=== PATIENT | female | born 1980 | race Caucasian/White ===

== ENCOUNTER 2016-04-29 17:05 | Emergency (ER) | payer BC ==
[2016-04-29] MEDS ORDERED: KETOROLAC 30 MG/ML VIAL (J1885) As Ordered ONE (19:11)
[2016-04-29] MEDS ORDERED: ONDANSETRON 4MG/2ML VIAL (J2405) As Ordered ONE (19:11)
[2016-04-29 19:27] LABS: BASO % 0.2 % (0.0-1.0); EOS # 0.1 K/mm3 (0.0-0.50); EOS % 0.4 % (0.0-3.0); LARGE UNSTAINED CELL # 0.2 K/mm3 (0.0-0.4); LARGE UNSTAINED CELL % 1.5 % (0.0-4.0); LYMPH # 2.5 K/mm3 (1.5-4.5); LYMPH % 15.6 % (24.0-44.0); MEAN CORPUSCULAR HEMOGLOBIN 28.2 pg (27.0-33.0); MEAN CORPUSCULAR HGB CONC 33.7 g/dl (32.0-36.5); MEAN CORPUSCULAR VOLUME 83.8 fl (80.0-96.0); MONO # 0.7 K/mm3 (0.0-0.8); MONO % 4.3 % (0.0-5.0); NEUTROPHILS # 12.7 K/mm3 (1.8-7.7); NEUTROPHILS % 77.9 % (36.0-66.0); PLATELET COUNT, AUTOMATED 621 k/mm3 (150-450); RED CELL DISTRIBUTION WIDTH 12.7 % (11.5-14.5); WHITE BLOOD COUNT 16.3 K/mm3 (4.0-10.0)
[2016-04-29 19:47] LABS: CONTROL LINE HCG INT CTR LINE PRESENT
[2016-04-29 19:52] LABS: ALBUMIN 4.4 GM/DL (3.2-5.2); ALBUMIN/GLOBULIN RATIO 1.22 (1.00-1.93); BILIRUBIN,DIRECT 0.1 MG/DL (0.0-0.2); BILIRUBIN,TOTAL 0.4 MG/DL (0.2-1.0); CALCIUM LEVEL 10.5 MG/DL (8.5-10.1); CREATININE FOR GFR 1.13 MG/DL (0.55-1.02); POTASSIUM SERUM 4.1 MEQ/L (3.5-5.1)
[2016-04-29] MEDS ORDERED: METOCLOPRAMIDE 10 MG TAB As Ordered ONE (20:51)
--- NOTE | 2016-04-29 20:57 | EDDOCDS ---
Physician Documentation [facility] Name: Fior Howard Age: 35 yrs Sex: Female : 1980 Arrival Date: 04/29/2016 Time: 17:05 Bed I6 Private MD: NO PRIMARY PHYSICIAN, . Disposition: 04/29/16 20:36 Discharged to Home/Self Care. Impression: Vomiting, Diarrhea, unspecified, Dehydration. - Condition is Stable. - Discharge Instructions: Food Choices to Help Relieve Diarrhea, Adult, Diarrhea, Nausea and Vomiting. - Prescriptions for Reglan 10 mg Oral Tablet - take 1 tablet by ORAL route every 6 hours take 30 minutes before meals and at bedtime; 20 tablet. - Work Release Form - 1 day, Medication Reconciliation, Local Pharmacy Hours form. - Follow up: Private Physician; When: Call to arrange an appointment; Reason: Recheck today's complaints, Continuance of care. Follow [facility]: [facility]; When: Call to arrange an appointment; Reason: Recheck today's complaints, Continuance of care. - Problem is new. - Symptoms have improved. Historical: - Allergies: no known allergies; - Home Meds: 1. Zofran (as hydrochloride) 4 mg Oral tab 2 tabs as needed (Last dose: 04/28/2016 21:00) 2. Zyrtec 10 mg Oral tab (Last dose: 04/29/2016 08:00) 3. Ventolin Rotahaler/Rotacaps Inhl as needed (Last dose: Unknown) 4. Advair Diskus 250-50 mcg/dose Inhl dsdv 1 puff 2 times per day (Last dose: 04/29/2016 08:00) - PMHx: Asthma; - PSHx: left arm ortho surgery; - Social history: Smoking status: Patient states was never smoker of tobacco. Patient uses alcohol occasionally. Patient/guardian denies using street drugs, No barriers to communication noted, The patient speaks fluent Moldovan, Speaks appropriately for age. - Family history: Not pertinent. - : The pt / caregiver states he / she is not on anticoagulants. Home medication list is obtained from the patient. - Exposure Risk Screening:: None identified. 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 5 in. (165.10 cm) (R); Pain 5/10; 20:55 BP 133 / 90; Pulse 87; Resp 18; Pulse Ox 95% on R/A; kc3 17:07 Body Mass Index 40.27 (109.77 kg, 165.10 cm) gr2 MDM: 19:10 NS 0.9% 1000 ml IV at bolus once ordered. mo1 19:10 Ondansetron 4 mg IVP once ordered. mo1 19:10 ketorolac 30 mg IVP once ordered. mo1 19:10 IV Saline Lock ordered. mo1 19:10 Undress patient appropriately for examination ordered. mo1 19:11 Basic Metabolic Profile Ordered. EDMS 19:11 CBC with Diff Ordered. EDMS 19:11 Lipase Ordered. EDMS 19:11 Liver Profile Ordered. EDMS 19:11 Urinalysis Ordered. EDMS 19:11 Urine Culture Ordered. EDMS 19:11 NOTHING BY MOUTH+DIET ordered. EDMS 19:21 HCG,Serum Qualitative Ordered. EDMS 19:40 Financial registration complete. b 19:47 [facility] [place] was scanned into [employer] and attached to record. gjb 20:25 Basic Metabolic Profile Reviewed. mo1 20:26 CBC with Diff Reviewed. mo1 20:26 Liver Profile Reviewed. mo1 20:26 Urinalysis Reviewed. mo1 20:27 Lipase Reviewed. mo1 20:27 HCG,Serum Qualitative Reviewed. mo1 20:50 Metoclopramide 5 mg PO once ordered. mo1 20:52 Metoclopramide 10 mg PO once ordered. mo1 Administered Medications: 19:18 Drug: NS 0.9% 1000 ml [sodium chloride 0.9 % injection solution] Route: IV; Rate: dsf bolus; Site: right antecubital; 19:18 Drug: Ondansetron 4 mg [ondansetron HCl 2 mg/mL intravenous solution (2 mL)] Route: dsf IVP; Site: right antecubital; 19:18 Drug: ketorolac 30 mg [ketorolac 30 mg/mL (1 mL) injection solution (1 mL)] Route: IVP; dsf Site: right antecubital; 20:52 Not Given (Duplicate Order): Metoclopramide 5 mg PO once mo1 20:54 Drug: Metoclopramide 10 mg [metoclopramide 10 mg tablet (1 tabs)] Route: PO; kc3 Signatures: Dispatcher [employer] Ariana Martinez RN RN ttb Benigno Moreno PA PA mo1 Sondra Rodriguez RN RN kc3 Raegan Mcgowan Desiree RN dsf The chart was reviewed and I authenticate all verbal orders and agree with the evaluation and treatment provided.Attachments: 19:47 [facility] Payment Agreement [email or web address] MTDD
--- NOTE | 2016-04-29 20:57 | EDDOCDS ---
Nurse's Notes [facility] Name: Fior Howard Age: 35 yrs Sex: Female : 1980 Arrival Date: 04/29/2016 Time: 17:05 Bed I6 / 28 Private MD: NO PRIMARY PHYSICIAN, . Diagnosis: Vomiting;Diarrhea, unspecified;Dehydration Presentation: 04/29 17:10 Presenting complaint: Patient states: n/v/d since Wednesday. No relief with zofran. ttb Adult Sepsis Screening: The patient does not have new or worsening altered mentation. Patient's respiratory rate is less than 22. Systolic blood pressure is greater than 100. Patient has a qSOFA score of 0- Negative Sepsis Screen. Suicide/Homicide risk assessment- the patient denies having any suicidal and/or homicidal ideations and does not present with any other emotional, behavioral or mental health complaints. Status: Patient is not a human resources services specialist or dependent. Transition of care: patient was not received from another setting of care. 17:10 Acuity: JOE Level 3 ttb 17:10 Method Of Arrival: Walkin/Carried/Asstd ttb Triage Assessment: 17:12 General: Appears in no apparent distress, well nourished, well groomed, Behavior is ttb appropriate for age, cooperative, pleasant. Pain: Location: abd cramping 4/10. HIV screening NA for this visit Offered previously. Neurological: Level of Consciousness is awake, alert. Cardiovascular: Chest pain is denied. Respiratory: No deficits noted. Airway is patent Denies cough, shortness of breath. GI: Reports diarrhea, nausea, vomiting. Derm: Skin is normal. MIND READER: 17:12 LMP 04/05/2016 ttb Historical: - Allergies: no known allergies; - Home Meds: 1. Zofran (as hydrochloride) 4 mg Oral tab 2 tabs as needed (Last dose: 04/28/2016 21:00) 2. Zyrtec 10 mg Oral tab (Last dose: 04/29/2016 08:00) 3. Ventolin Rotahaler/Rotacaps Inhl as needed (Last dose: Unknown) 4. Advair Diskus 250-50 mcg/dose Inhl dsdv 1 puff 2 times per day (Last dose: 04/29/2016 08:00) - PMHx: Asthma; - PSHx: left arm ortho surgery; - Social history: Smoking status: Patient states was never smoker of tobacco. Patient uses alcohol occasionally. Patient/guardian denies using street drugs, No barriers to communication noted, The patient speaks fluent Greek, Speaks appropriately for age. - Family history: Not pertinent. - : The pt / caregiver states he / she is not on anticoagulants. Home medication list is obtained from the patient. - Exposure Risk Screening:: None identified. Screenin:55 Screening information is obtained from the patient. Fall risk: No risks identified. kc3 Assistance ADL's: requires no assistance with activities of daily living. Abuse/DV Screen: The patient / caregiver reports he/she is: not in a situation that causes fear, pain or injury. Nutritional screening: No deficits noted. Nutritional screening: No deficits noted. Advance Directives: Currently, there is no health care proxy. home support is adequate. Assessment: 19:18 Adult Sepsis Screening: The patient does not have new or worsening altered mentation. dsf Patient's respiratory rate is less than 22. Systolic blood pressure is greater than 100. Patient has a qSOFA score of 0- Negative Sepsis Screen. General: Appears in no apparent distress, comfortable, Behavior is appropriate for age, cooperative. Pain: Location: abdomen Pain currently is 5 out of 10 on a pain scale. Quality of pain is described as crampy. Neurological: Level of Consciousness is awake, alert, Oriented to person, place, time. Cardiovascular: Capillary refill < 3 seconds. Respiratory: Airway is patent Respiratory effort is even, unlabored, Respiratory pattern is regular, symmetrical. GI: Abdomen is obese, Reports cramping, diarrhea, nausea, vomiting. Derm: Skin is pink, warm & dry. 20:10 General: Appears in no apparent distress, comfortable, Behavior is appropriate for age, jmb cooperative. Neurological: Level of Consciousness is awake, alert, obeys commands, Oriented to person, place, time, Speech is normal, Facial symmetry appears normal, Facial symmetry: tongue is midline. Respiratory: Airway is patent Respiratory effort is even, unlabored, Respiratory pattern is regular, symmetrical. 20:55 General: Appears in no apparent distress, comfortable, Behavior is appropriate for age, kc3 cooperative. Pain: Location: abdomen. Neurological: Level of Consciousness is awake, alert, obeys commands. Respiratory: Respiratory effort is even, unlabored. GI: Abdomen is obese, Bowel sounds present X 4 quads. Abd is soft Abd is tender to palpation. Derm: Skin is pink, warm & dry. Vital Signs: 17:07 BP 145 / 85; Pulse 96; Resp 18 S; Temp 98.2(O); Pulse Ox 98% on R/A; Weight 109.77 kg gr2 (R); Height 5 ft. 5 in. (165.10 cm) (R); Pain 5/10; 20:55 BP 133 / 90; Pulse 87; Resp 18; Pulse Ox 95% on R/A; kc3 17:07 Body Mass Index 40.27 (109.77 kg, 165.10 cm) gr2 Vitals: 17:07 Log In Time: April 29, 2016 at 17:07. gr2 ED Course: 17:06 Patient visited by Dewey Gill. gr2 17:06 NO PRIMARY PHYSICIAN, . is Private Physician. gr2 17:06 Patient moved to Waiting gr2 17:08 Patient visited by Dewey Gill. gr2 17:08 Patient moved to Pre RCE gr2 17:11 Triage Initiated ttb 17:13 Patient visited by Ariana Richter RN. ttb 18:20 Patient moved to Triage 1 mlb1 18:58 Benigno Moreno PA is PHCP. mo1 18:58 Jazmine Gerber MD is Attending Physician. mo1 19:08 Carmelina Davis, RN is Primary Nurse. ttb 19:08 Darlene Juarez,FERN is Primary Nurse. ttb 19:08 Patient moved to I ttb 19:09 Patient visited by Benigno Moreno PA. mo1 19:17 Basic Metabolic Profile Sent. dsf 19:18 CBC with Diff Sent. dsf 19:18 Lipase Sent. dsf 19:18 Liver Profile Sent. dsf 19:18 Inserted saline lock: 20 gauge in right antecubital area The patient tolerated the dsf procedure well. 19:19 Patient visited by Laura Henley,FERN. dsf 19:47 [facility] [place] Payment Agreement was scanned into [employer] and attached to record. gjb 20:10 Patient visited by Brennan Mcdonald,FERN. jmb 20:36 [facility] is Referral Physician. mo1 20:56 The patient / caregiver is instructed regarding the plan of care and ED course. kc3 20:56 Discontinued IV lock intact, bleeding controlled, pressure dressing applied, No kc3 redness/swelling at site. No procedures done that require assistance. Administered Medications: 19:18 Drug: NS 0.9% 1000 ml [sodium chloride 0.9 % injection solution] Route: IV; Rate: dsf bolus; Site: right antecubital; 19:18 Drug: Ondansetron 4 mg [ondansetron HCl 2 mg/mL intravenous solution (2 mL)] Route: dsf IVP; Site: right antecubital; 19:18 Drug: ketorolac 30 mg [ketorolac 30 mg/mL (1 mL) injection solution (1 mL)] Route: IVP; dsf Site: right antecubital; 20:52 Not Given (Duplicate Order): Metoclopramide 5 mg PO once mo1 20:54 Drug: Metoclopramide 10 mg [metoclopramide 10 mg tablet (1 tabs)] Route: PO; kc3 Order Results: Lab Order: Basic Metabolic Profile; [facility] 04/29/16 19:16 Test: GLUCOSE, FASTING; Value: 110; Range: 70-105; Abnormal: Above high normal; Units: MG/DL; Status: F Test: BLOOD UREA NITROGEN; Value: 19; Range: 7-18; Abnormal: Above high normal; Units: MG/DL; Status: F Test: CREATININE FOR GFR; Value: 1.13; Range: 0.55-1.02; Abnormal: Above high normal; Units: MG/DL; Status: F Test: GLOMERULAR FILTRATION RATE; Value: 59.0; Range: >60; Abnormal: Below low normal; Status: F Test: SODIUM LEVEL; Value: 140; Range: 136-145; Units: MEQ/L; Status: F Test: POTASSIUM SERUM; Value: 4.1; Range: 3.5-5.1; Units: MEQ/L; Status: F Test: CHLORIDE LEVEL; Value: 100; Range: 98-107; Units: MEQ/L; Status: F Test: CARBON DIOXIDE LEVEL; Value: 28; Range: 21-32; Units: MEQ/L; Status: F Test: ANION GAP; Value: 12; Range: 8-16; Units: MEQ/L; Status: F Test: CALCIUM LEVEL; Value: 10.5; Range: 8.5-10.1; Abnormal: Above high normal; Units: MG/DL; Status: F Test Note: ; Units are mL/min/1.73 m2 Chronic Kidney Disease Staging per NKF: Stage I & II GFR >=60 Normal to Mildly Decreased Stage III GFR 30-59 Moderately Decreased Stage IV GFR 15-29 Severely Decreased Stage V GFR <15 Very Little GFR Left ESRD GFR <15 on CONSTRUCTION FRAMER Lab Order: CBC with Diff; SPEC'M 04/29/16 19:16 Test: WHITE BLOOD COUNT; Value: 16.3; Range: 4.0-10.0; Abnormal: Above high normal; Units: K/mm3; Status: F Test: RED BLOOD COUNT; Value: 5.58; Range: 4.00-5.40; Abnormal: Above high normal; Units: M/mm3; Status: F Test: HEMOGLOBIN; Value: 15.8; Range: 12.0-16.0; Units: g/dl; Status: F Test: HEMATOCRIT; Value: 46.8; Range: 36.0-47.0; Units: %; Status: F Test: MEAN CORPUSCULAR VOLUME; Value: 83.8; Range: 80.0-96.0; Units: fl; Status: F Test: MEAN CORPUSCULAR HEMOGLOBIN; Value: 28.2; Range: 27.0-33.0; Units: pg; Status: F Test: MEAN CORPUSCULAR HGB CONC; Value: 33.7; Range: 32.0-36.5; Units: g/dl; Status: F Test: RED CELL DISTRIBUTION WIDTH; Value: 12.7; Range: 11.5-14.5; Units: %; Status: F Test: PLATELET COUNT, AUTOMATED; Value: 621; Range: 150-450; Abnormal: Above high normal; Units: k/mm3; Status: F Test: NEUTROPHILS %; Value: 77.9; Range: 36.0-66.0; Abnormal: Above high normal; Units: %; Status: F Test: LYMPH %; Value: 15.6; Range: 24.0-44.0; Abnormal: Below low normal; Units: %; Status: F Test: MONO %; Value: 4.3; Range: 0.0-5.0; Units: %; Status: F Test: EOS %; Value: 0.4; Range: 0.0-3.0; Units: %; Status: F Test: BASO %; Value: 0.2; Range: 0.0-1.0; Units: %; Status: F Test: LARGE UNSTAINED CELL %; Value: 1.5; Range: 0.0-4.0; Units: %; Status: F Test: NEUTROPHILS #; Value: 12.7; Range: 1.8-7.7; Abnormal: Above high normal; Units: K/mm3; Status: F Test: LYMPH #; Value: 2.5; Range: 1.5-4.5; Units: K/mm3; Status: F Test: MONO #; Value: 0.7; Range: 0.0-0.8; Units: K/mm3; Status: F Test: EOS #; Value: 0.1; Range: 0.0-0.50; Units: K/mm3; Status: F Test: BASO #; Value: 0.0; Range: 0.0-0.2; Units: K/mm3; Status: F Test: LARGE UNSTAINED CELL #; Value: 0.2; Range: 0.0-0.4; Units: K/mm3; Status: F Lab Order: Lipase; [facility] 04/29/16 19:16 Test: LIPASE; Value: 91; Range: 73-393; Units: U/L; Status: F Lab Order: Liver Profile; [facility] 04/29/16 19:16 Test: AST/SGOT; Value: 13; Range: 15-37; Abnormal: Below low normal; Units: U/L; Status: F Test: ALT/SGPT; Value: 27; Range: 12-78; Units: U/L; Status: F Test: ALKALINE PHOSPHATASE; Value: 77; Range: 45-117; Units: U/L; Status: F Test: BILIRUBIN,TOTAL; Value: 0.4; Range: 0.2-1.0; Units: MG/DL; Status: F Test: BILIRUBIN,DIRECT; Value: 0.1; Range: 0.0-0.2; Units: MG/DL; Status: F Test: TOTAL PROTEIN; Value: 8.0; Range: 6.4-8.2; Units: GM/DL; Status: F Test: ALBUMIN; Value: 4.4; Range: 3.2-5.2; Units: GM/DL; Status: F Test: ALBUMIN/GLOBULIN RATIO; Value: 1.22; Range: 1.00-1.93; Status: F Lab Order: Urinalysis; SPEC'M 04/29/16 20:01 Test: APPEARANCE, URINE; Value: CLOUDY; Range: CLEAR; Abnormal: Above high normal; Status: F Test: COLOR, URINE; Value: YONY; Range: YELLOW; Status: F Test: PH,URINE; Value: 5.0; Range: 5.0-9.0; Units: UNITS; Status: F Test: SPECIFIC GRAVITY URINE AUTO; Value: 1.035; Range: 1.002-1.035; Status: F Test: PROTEIN, URINE AUTO; Value: 2+; Range: NEGATIVE; Abnormal: Above high normal; Units: mg/dL; Status: F Test: GLUCOSE, URINE (UA) AUTO; Value: NEGATIVE; Range: NEGATIVE; Units: mg/dL; Status: F Test: KETONE, URINE AUTO; Value: 1+; Range: NEGATIVE; Abnormal: Above high normal; Units: mg/dL; Status: F Test: UROBILINOGEN, URINE AUTO; Value: 0.2; Range: 0.0-2.0; Units: mg/dL; Status: F Test: BILIRUBIN, URINE AUTO; Value: 1+; Range: NEGATIVE; Abnormal: Above high normal; Status: F Test: NITRITE, URINE AUTO; Value: NEGATIVE; Range: NEGATIVE; Status: F Test: LEUKOCYTE ESTERASE, URINE AUTO; Value: NEGATIVE; Range: NEGATIVE; Status: F Test: BLOOD, URINE BLOOD; Value: 1+; Range: NEGATIVE; Abnormal: Above high normal; Status: F Test: WBC, URINE AUTO; Value: 2; Range: 0-3; Units: /HPF; Status: F Test: RBC, URINE AUTO; Value: 6; Range: 0-3; Abnormal: Above high normal; Units: /HPF; Status: F Test: BACTERIA, URINE AUTO; Value: NEGATIVE; Range: NEGATIVE; Status: F Test: SQUAMOUS EPITHELIAL CELL UR AU; Value: 30; Range: 0-6; Units: /HPF; Status: F Test: MUCUS, URINE; Value: SMALL; Range: NEGATIVE; Status: F Test: HYALINE CAST, URINE AUTO; Value: 3; Range: 0-1; Units: /LPF; Status: F Test: AMORPHOUS SEDIMENT; Value: SMALL; Range: NEGATIVE; Abnormal: Above high normal; Status: F Lab Order: HCG,Serum Qualitative; SPEC'M 04/29/16 19:15 Test: HCG, SERUM QUALITATIVE; Value: NEGATIVE; Range: NEGATIVE; Status: F Outcome: 20:36 Discharge ordered by Provider. mo1 20:56 Discharge Assessment: Patient awake, alert and oriented x 3. No cognitive and/or kc3 functional deficits noted. Patient verbalized understanding of disposition instructions. patient administered narcotics - no. The following High Risk Discharge criteria are identified: None. Discharged to home ambulatory. Condition: stable. Discharge instructions given to patient, Instructed on discharge instructions, follow up and referral plans. medication usage, Demonstrated understanding of instructions, medications, Pt was receptive of discharge instructions/ teaching. Prescriptions given X 1, Work note provided to patient. No special radiology studies were completed. Property :Personal belongings accompany Pt. 20:57 Patient left the ED. kc3 Signatures: Benigno Lopez RN RN mlb1 Laura HenleyRN RN Ariana Meredith RN RN Dewey Rojas Benigno Contreras PA PA mo1 Brennan McdonaldRN RN Sondra Norton RN RN kc3 Raegan Mcgowan MTDD
--- NOTE | 2016-05-01 21:57 | EDDOCDS ---
Nurse's Notes [facility] Name: Fior Howard Age: 35 yrs Sex: Female : 1980 Arrival Date: 04/29/2016 Time: 17:05 Bed I6 / 28 Private MD: NO PRIMARY PHYSICIAN, . Diagnosis: Vomiting;Diarrhea, unspecified;Dehydration Presentation: 04/29 17:10 Presenting complaint: Patient states: n/v/d since Wednesday. No relief with zofran. ttb Adult Sepsis Screening: The patient does not have new or worsening altered mentation. Patient's respiratory rate is less than 22. Systolic blood pressure is greater than 100. Patient has a qSOFA score of 0- Negative Sepsis Screen. Suicide/Homicide risk assessment- the patient denies having any suicidal and/or homicidal ideations and does not present with any other emotional, behavioral or mental health complaints. Status: Patient is not a service plumber or dependent. Transition of care: patient was not received from another setting of care. 17:10 Acuity: JOE Level 3 ttb 17:10 Method Of Arrival: Walkin/Carried/Asstd ttb Triage Assessment: 17:12 General: Appears in no apparent distress, well nourished, well groomed, Behavior is ttb appropriate for age, cooperative, pleasant. Pain: Location: abd cramping 4/10. HIV screening NA for this visit Offered previously. Neurological: Level of Consciousness is awake, alert. Cardiovascular: Chest pain is denied. Respiratory: No deficits noted. Airway is patent Denies cough, shortness of breath. GI: Reports diarrhea, nausea, vomiting. Derm: Skin is normal. 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 Zofran (as hydrochloride) 4 mg Oral tab 2 tabs as needed (Last dose: 04/28/2016 21:00) 2. Zyrtec 10 mg Oral tab (Last dose: 04/29/2016 08:00) 3. Ventolin Rotahaler/Rotacaps Inhl as needed (Last dose: Unknown) 4. Advair Diskus 250-50 mcg/dose Inhl dsdv 1 puff 2 times per day (Last dose: 04/29/2016 08:00) - PMHx: Asthma; - PSHx: left arm ortho surgery; - Social history: Smoking status: Patient states was never smoker of tobacco. Patient uses alcohol occasionally. Patient/guardian denies using street drugs, No barriers to communication noted, The patient speaks fluent Hong Konger, Speaks appropriately for age. - Family history: Not pertinent. - : The pt / caregiver states he / she is not on anticoagulants. Home medication list is obtained from the patient. - Exposure Risk Screening:: None identified. Screenin:55 Screening information is obtained from the patient. Fall risk: No risks identified. kc3 Assistance ADL's: requires no assistance with activities of daily living. Abuse/DV Screen: The patient / caregiver reports he/she is: not in a situation that causes fear, pain or injury. Nutritional screening: No deficits noted. Nutritional screening: No deficits noted. Advance Directives: Currently, there is no health care proxy. home support is adequate. Assessment: 19:18 Adult Sepsis Screening: The patient does not have new or worsening altered mentation. dsf Patient's respiratory rate is less than 22. Systolic blood pressure is greater than 100. Patient has a qSOFA score of 0- Negative Sepsis Screen. General: Appears in no apparent distress, comfortable, Behavior is appropriate for age, cooperative. Pain: Location: abdomen Pain currently is 5 out of 10 on a pain scale. Quality of pain is described as crampy. Neurological: Level of Consciousness is awake, alert, Oriented to person, place, time. Cardiovascular: Capillary refill < 3 seconds. Respiratory: Airway is patent Respiratory effort is even, unlabored, Respiratory pattern is regular, symmetrical. GI: Abdomen is obese, Reports cramping, diarrhea, nausea, vomiting. Derm: Skin is pink, warm & dry. 20:10 General: Appears in no apparent distress, comfortable, Behavior is appropriate for age, jmb cooperative. Neurological: Level of Consciousness is awake, alert, obeys commands, Oriented to person, place, time, Speech is normal, Facial symmetry appears normal, Facial symmetry: tongue is midline. Respiratory: Airway is patent Respiratory effort is even, unlabored, Respiratory pattern is regular, symmetrical. 20:55 General: Appears in no apparent distress, comfortable, Behavior is appropriate for age, kc3 cooperative. Pain: Location: abdomen. Neurological: Level of Consciousness is awake, alert, obeys commands. Respiratory: Respiratory effort is even, unlabored. GI: Abdomen is obese, Bowel sounds present X 4 quads. Abd is soft Abd is tender to palpation. Derm: Skin is pink, warm & dry. Vital Signs: 17:07 BP 145 / 85; Pulse 96; Resp 18 S; Temp 98.2(O); Pulse Ox 98% on R/A; Weight 109.77 kg gr2 (R); Height 5 ft. 5 in. (165.10 cm) (R); Pain 5/10; 20:55 BP 133 / 90; Pulse 87; Resp 18; Pulse Ox 95% on R/A; kc3 17:07 Body Mass Index 40.27 (109.77 kg, 165.10 cm) gr2 Vitals: 17:07 Log In Time: April 29, 2016 at 17:07. gr2 ED Course: 17:06 Patient visited by Dewey Gill. gr2 17:06 NO PRIMARY PHYSICIAN, . is Private Physician. gr2 17:06 Patient moved to Waiting gr2 17:08 Patient visited by Dewey Gill. gr2 17:08 Patient moved to Pre RCE gr2 17:11 Triage Initiated ttb 17:13 Patient visited by Ariana Richter RN. ttb 18:20 Patient moved to Triage 1 mlb1 18:58 Benigno Moreno PA is PHCP. mo1 18:58 Jazmine Gerber MD is Attending Physician. mo1 19:08 Carmelina Davis, RN is Primary Nurse. ttb 19:08 Darlene Juarez,FERN is Primary Nurse. ttb 19:08 Patient moved to I ttb 19:09 Patient visited by Benigno Moreno PA. mo1 19:17 Basic Metabolic Profile Sent. dsf 19:18 CBC with Diff Sent. dsf 19:18 Lipase Sent. dsf 19:18 Liver Profile Sent. dsf 19:18 Inserted saline lock: 20 gauge in right antecubital area The patient tolerated the dsf procedure well. 19:19 Patient visited by Laura Henley,FERN. dsf 19:47 [facility] Payment Agreement was scanned into [employer] and attached to record. gjb 20:10 Patient visited by Brennan Mcdonald,FERN. jmb 20:36 [facility] is Referral Physician. mo1 20:56 The patient / caregiver is instructed regarding the plan of care and ED course. kc3 20:56 Discontinued IV lock intact, bleeding controlled, pressure dressing applied, No kc3 redness/swelling at site. No procedures done that require assistance. 04/30 13:23 T-Sheet-- Draft Copy was scanned into [employer] and attached to record. gb Administered Medications: 04/29 19:18 Drug: NS 0.9% 1000 ml [sodium chloride 0.9 % injection solution] Route: IV; Rate: dsf bolus; Site: right antecubital; 19:18 Drug: Ondansetron 4 mg [ondansetron HCl 2 mg/mL intravenous solution (2 mL)] Route: dsf IVP; Site: right antecubital; 19:18 Drug: ketorolac 30 mg [ketorolac 30 mg/mL (1 mL) injection solution (1 mL)] Route: IVP; dsf Site: right antecubital; 20:52 Not Given (Duplicate Order): Metoclopramide 5 mg PO once mo1 20:54 Drug: Metoclopramide 10 mg [metoclopramide 10 mg tablet (1 tabs)] Route: PO; kc3 Order Results: Lab Order: Basic Metabolic Profile; SPEC'M 04/29/16 19:16 Test: GLUCOSE, FASTING; Value: 110; Range: 70-105; Abnormal: Above high normal; Units: MG/DL; Status: F Test: BLOOD UREA NITROGEN; Value: 19; Range: 7-18; Abnormal: Above high normal; Units: MG/DL; Status: F Test: CREATININE FOR GFR; Value: 1.13; Range: 0.55-1.02; Abnormal: Above high normal; Units: MG/DL; Status: F Test: GLOMERULAR FILTRATION RATE; Value: 59.0; Range: >60; Abnormal: Below low normal; Status: F Test: SODIUM LEVEL; Value: 140; Range: 136-145; Units: MEQ/L; Status: F Test: POTASSIUM SERUM; Value: 4.1; Range: 3.5-5.1; Units: MEQ/L; Status: F Test: CHLORIDE LEVEL; Value: 100; Range: 98-107; Units: MEQ/L; Status: F Test: CARBON DIOXIDE LEVEL; Value: 28; Range: 21-32; Units: MEQ/L; Status: F Test: ANION GAP; Value: 12; Range: 8-16; Units: MEQ/L; Status: F Test: CALCIUM LEVEL; Value: 10.5; Range: 8.5-10.1; Abnormal: Above high normal; Units: MG/DL; Status: F Test Note: ; Units are mL/min/1.73 m2 Chronic Kidney Disease Staging per NKF: Stage I & II GFR >=60 Normal to Mildly Decreased Stage III GFR 30-59 Moderately Decreased Stage IV GFR 15-29 Severely Decreased Stage V GFR <15 Very Little GFR Left ESRD GFR <15 on TELEPHONE TRIAGE NURSE Lab Order: CBC with Diff; SPEC'M 04/29/16 19:16 Test: WHITE BLOOD COUNT; Value: 16.3; Range: 4.0-10.0; Abnormal: Above high normal; Units: K/mm3; Status: F Test: RED BLOOD COUNT; Value: 5.58; Range: 4.00-5.40; Abnormal: Above high normal; Units: M/mm3; Status: F Test: HEMOGLOBIN; Value: 15.8; Range: 12.0-16.0; Units: g/dl; Status: F Test: HEMATOCRIT; Value: 46.8; Range: 36.0-47.0; Units: %; Status: F Test: MEAN CORPUSCULAR VOLUME; Value: 83.8; Range: 80.0-96.0; Units: fl; Status: F Test: MEAN CORPUSCULAR HEMOGLOBIN; Value: 28.2; Range: 27.0-33.0; Units: pg; Status: F Test: MEAN CORPUSCULAR HGB CONC; Value: 33.7; Range: 32.0-36.5; Units: g/dl; Status: F Test: RED CELL DISTRIBUTION WIDTH; Value: 12.7; Range: 11.5-14.5; Units: %; Status: F Test: PLATELET COUNT, AUTOMATED; Value: 621; Range: 150-450; Abnormal: Above high normal; Units: k/mm3; Status: F Test: NEUTROPHILS %; Value: 77.9; Range: 36.0-66.0; Abnormal: Above high normal; Units: %; Status: F Test: LYMPH %; Value: 15.6; Range: 24.0-44.0; Abnormal: Below low normal; Units: %; Status: F Test: MONO %; Value: 4.3; Range: 0.0-5.0; Units: %; Status: F Test: EOS %; Value: 0.4; Range: 0.0-3.0; Units: %; Status: F Test: BASO %; Value: 0.2; Range: 0.0-1.0; Units: %; Status: F Test: LARGE UNSTAINED CELL %; Value: 1.5; Range: 0.0-4.0; Units: %; Status: F Test: NEUTROPHILS #; Value: 12.7; Range: 1.8-7.7; Abnormal: Above high normal; Units: K/mm3; Status: F Test: LYMPH #; Value: 2.5; Range: 1.5-4.5; Units: K/mm3; Status: F Test: MONO #; Value: 0.7; Range: 0.0-0.8; Units: K/mm3; Status: F Test: EOS #; Value: 0.1; Range: 0.0-0.50; Units: K/mm3; Status: F Test: BASO #; Value: 0.0; Range: 0.0-0.2; Units: K/mm3; Status: F Test: LARGE UNSTAINED CELL #; Value: 0.2; Range: 0.0-0.4; Units: K/mm3; Status: F Lab Order: Lipase; [facility]' 04/29/16 19:16 Test: LIPASE; Value: 91; Range: 73-393; Units: U/L; Status: F Lab Order: Liver Profile; [facility]' 04/29/16 19:16 Test: AST/SGOT; Value: 13; Range: 15-37; Abnormal: Below low normal; Units: U/L; Status: F Test: ALT/SGPT; Value: 27; Range: 12-78; Units: U/L; Status: F Test: ALKALINE PHOSPHATASE; Value: 77; Range: 45-117; Units: U/L; Status: F Test: BILIRUBIN,TOTAL; Value: 0.4; Range: 0.2-1.0; Units: MG/DL; Status: F Test: BILIRUBIN,DIRECT; Value: 0.1; Range: 0.0-0.2; Units: MG/DL; Status: F Test: TOTAL PROTEIN; Value: 8.0; Range: 6.4-8.2; Units: GM/DL; Status: F Test: ALBUMIN; Value: 4.4; Range: 3.2-5.2; Units: GM/DL; Status: F Test: ALBUMIN/GLOBULIN RATIO; Value: 1.22; Range: 1.00-1.93; Status: F Lab Order: Urinalysis; SPEC'M 04/29/16 20:01 Test: APPEARANCE, URINE; Value: CLOUDY; Range: CLEAR; Abnormal: Above high normal; Status: F Test: COLOR, URINE; Value: YONY; Range: YELLOW; Status: F Test: PH,URINE; Value: 5.0; Range: 5.0-9.0; Units: UNITS; Status: F Test: SPECIFIC GRAVITY URINE AUTO; Value: 1.035; Range: 1.002-1.035; Status: F Test: PROTEIN, URINE AUTO; Value: 2+; Range: NEGATIVE; Abnormal: Above high normal; Units: mg/dL; Status: F Test: GLUCOSE, URINE (UA) AUTO; Value: NEGATIVE; Range: NEGATIVE; Units: mg/dL; Status: F Test: KETONE, URINE AUTO; Value: 1+; Range: NEGATIVE; Abnormal: Above high normal; Units: mg/dL; Status: F Test: UROBILINOGEN, URINE AUTO; Value: 0.2; Range: 0.0-2.0; Units: mg/dL; Status: F Test: BILIRUBIN, URINE AUTO; Value: 1+; Range: NEGATIVE; Abnormal: Above high normal; Status: F Test: NITRITE, URINE AUTO; Value: NEGATIVE; Range: NEGATIVE; Status: F Test: LEUKOCYTE ESTERASE, URINE AUTO; Value: NEGATIVE; Range: NEGATIVE; Status: F Test: BLOOD, URINE BLOOD; Value: 1+; Range: NEGATIVE; Abnormal: Above high normal; Status: F Test: WBC, URINE AUTO; Value: 2; Range: 0-3; Units: /HPF; Status: F Test: RBC, URINE AUTO; Value: 6; Range: 0-3; Abnormal: Above high normal; Units: /HPF; Status: F Test: BACTERIA, URINE AUTO; Value: NEGATIVE; Range: NEGATIVE; Status: F Test: SQUAMOUS EPITHELIAL CELL UR AU; Value: 30; Range: 0-6; Units: /HPF; Status: F Test: MUCUS, URINE; Value: SMALL; Range: NEGATIVE; Status: F Test: HYALINE CAST, URINE AUTO; Value: 3; Range: 0-1; Units: /LPF; Status: F Test: AMORPHOUS SEDIMENT; Value: SMALL; Range: NEGATIVE; Abnormal: Above high normal; Status: F Lab Order: Urine Culture; SPEC'M 04/29/16 20:01 Test: URINE CULTURE; Value: <EXTERNAL COMMENT eCWMed> FULL REPORT IN LAB NOTES (eCW and Medent).; Status: F Test: URINE CULTURE; Value: URINE CULTURE RESULT SPECIMEN APPEARS CONTAMINATED; Status: F Lab Order: HCG,Serum Qualitative; SPEC'M 04/29/16 19:15 Test: HCG, SERUM QUALITATIVE; Value: NEGATIVE; Range: NEGATIVE; Status: F Outcome: 20:36 Discharge ordered by Provider. mo1 20:56 Discharge Assessment: Patient awake, alert and oriented x 3. No cognitive and/or kc3 functional deficits noted. Patient verbalized understanding of disposition instructions. patient administered narcotics - no. The following High Risk Discharge criteria are identified: None. Discharged to home ambulatory. Condition: stable. Discharge instructions given to patient, Instructed on discharge instructions, follow up and referral plans. medication usage, Demonstrated understanding of instructions, medications, Pt was receptive of discharge instructions/ teaching. Prescriptions given X 1, Work note provided to patient. No special radiology studies were completed. Property :Personal belongings accompany Pt. 20:57 Patient left the ED. kc3 Signatures: Katie Reno, Reg Reg Benigno Garcia RN RN mlb1 Laura Henley,RN RN joyf Ariana Richter RN RN bernabeb Dewey Gill gr2 Benigno Moreno PA PA mo1 Brennan Mcdonald RN RN jmb Crane, Kelsi, RN RN kc3 Raegan Mcgowan Chart Complete MTDD
--- NOTE | 2016-05-01 21:57 | EDDOCDS ---
Physician Documentation Name: Fior Howard Age: 35 yrs Sex: Female : 1980 Arrival Date: 04/29/2016 Time: 17:05 Bed I6 Private MD: NO PRIMARY PHYSICIAN, . Disposition: 04/29/16 20:36 Discharged to Home/Self Care. Impression: Vomiting, Diarrhea, unspecified, Dehydration. - Condition is Stable. - Discharge Instructions: Food Choices to Help Relieve Diarrhea, Adult, Diarrhea, Nausea and Vomiting. - Prescriptions for Reglan 10 mg Oral Tablet - take 1 tablet by ORAL route every 6 hours take 30 minutes before meals and at bedtime; 20 tablet. - Work Release Form - 1 day, Medication Reconciliation, Local Pharmacy Hours form. - Follow up: Private Physician; When: Call to arrange an appointment; Reason: Recheck today's complaints, Continuance of care. [facility]: [facility]; When: Call to arrange an appointment; Reason: Recheck today's complaints, Continuance of care. - Problem is new. - Symptoms have improved. Historical: - Allergies: no known allergies; - Home Meds: 1. Zofran (as hydrochloride) 4 mg Oral tab 2 tabs as needed (Last dose: 04/28/2016 21:00) 2. Zyrtec 10 mg Oral tab (Last dose: 04/29/2016 08:00) 3. Ventolin Rotahaler/Rotacaps Inhl as needed (Last dose: Unknown) 4. Advair Diskus 250-50 mcg/dose Inhl dsdv 1 puff 2 times per day (Last dose: 04/29/2016 08:00) - PMHx: Asthma; - PSHx: left arm ortho surgery; - Social history: Smoking status: Patient states was never smoker of tobacco. Patient uses alcohol occasionally. Patient/guardian denies using street drugs, No barriers to communication noted, The patient speaks fluent Ecuadorean, Speaks appropriately for age. - Family history: Not pertinent. - : The pt / caregiver states he / she is not on anticoagulants. Home medication list is obtained from the patient. - Exposure Risk Screening:: None identified. 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 5 in. (165.10 cm) (R); Pain 5/10; 20:55 BP 133 / 90; Pulse 87; Resp 18; Pulse Ox 95% on R/A; kc3 17:07 Body Mass Index 40.27 (109.77 kg, 165.10 cm) gr2 MDM: 19:10 NS 0.9% 1000 ml IV at bolus once ordered. mo1 19:10 Ondansetron 4 mg IVP once ordered. mo1 19:10 ketorolac 30 mg IVP once ordered. mo1 19:10 IV Saline Lock ordered. mo1 19:10 Undress patient appropriately for examination ordered. mo1 19:11 Basic Metabolic Profile Ordered. EDMS 19:11 CBC with Diff Ordered. EDMS 19:11 Lipase Ordered. EDMS 19:11 Liver Profile Ordered. EDMS 19:11 Urinalysis Ordered. EDMS 19:11 Urine Culture Ordered. EDMS 19:11 NOTHING BY MOUTH+DIET ordered. EDMS 19:21 HCG,Serum Qualitative Ordered. EDMS 19:40 Financial registration complete. gjb 19:47 [facility] Payment Agreement was scanned into [employer] and attached to record. gjb 20:25 Basic Metabolic Profile Reviewed. mo1 20:26 CBC with Diff Reviewed. mo1 20:26 Liver Profile Reviewed. mo1 20:26 Urinalysis Reviewed. mo1 20:27 Lipase Reviewed. mo1 20:27 HCG,Serum Qualitative Reviewed. mo1 20:50 Metoclopramide 5 mg PO once ordered. mo1 20:52 Metoclopramide 10 mg PO once ordered. mo1 04/30 13:23 T-Sheet-- Draft Copy was scanned into [employer] and attached to record. gb Administered Medications: 04/29 19:18 Drug: NS 0.9% 1000 ml [sodium chloride 0.9 % injection solution] Route: IV; Rate: dsf bolus; Site: right antecubital; 19:18 Drug: Ondansetron 4 mg [ondansetron HCl 2 mg/mL intravenous solution (2 mL)] Route: dsf IVP; Site: right antecubital; 19:18 Drug: ketorolac 30 mg [ketorolac 30 mg/mL (1 mL) injection solution (1 mL)] Route: IVP; dsf Site: right antecubital; 20:52 Not Given (Duplicate Order): Metoclopramide 5 mg PO once mo1 20:54 Drug: Metoclopramide 10 mg [metoclopramide 10 mg tablet (1 tabs)] Route: PO; kc3 Signatures: Dispatcher [employer] EDKatie Hernandez, Reg Reg gb Ariana Richter RN RN ttb Benigno Moreno PA PA mo1 Sondra Rodriguez RN RN kc3 Raegan Mcgowan Desiree RN dsf The chart was reviewed and I authenticate all verbal orders and agree with the evaluation and treatment provided.Attachments: 19:47 [facility] Payment Agreement gjb 04/30 13:23 T-Sheet-- Draft Copy gb Chart Complete MTDD
--- NOTE | 2016-05-01 21:57 | EDDOCDS ---
Physician Documentation [facility] Name: Fior Howard Age: 35 yrs Sex: Female : 1980 Arrival Date: 04/29/2016 Time: 17:05 Bed I6 Private MD: NO PRIMARY PHYSICIAN, . Disposition: 04/29/16 20:36 Discharged to Home/Self Care. Impression: Vomiting, Diarrhea, unspecified, Dehydration. - Condition is Stable. - Discharge Instructions: Food Choices to Help Relieve Diarrhea, Adult, Diarrhea, Nausea and Vomiting. - Prescriptions for Reglan 10 mg Oral Tablet - take 1 tablet by ORAL route every 6 hours take 30 minutes before meals and at bedtime; 20 tablet. - Work Release Form - 1 day, Medication Reconciliation, Local Pharmacy Hours form. - Follow up: Private Physician; When: Call to arrange an appointment; Reason: Recheck today's complaints, Continuance of care. [facility]; When: Call to arrange an appointment; Reason: Recheck today's complaints, Continuance of care. - Problem is new. - Symptoms have improved. Historical: - Allergies: no known allergies; - Home Meds: 1. Zofran (as hydrochloride) 4 mg Oral tab 2 tabs as needed (Last dose: 04/28/2016 21:00) 2. Zyrtec 10 mg Oral tab (Last dose: 04/29/2016 08:00) 3. Ventolin Rotahaler/Rotacaps Inhl as needed (Last dose: Unknown) 4. Advair Diskus 250-50 mcg/dose Inhl dsdv 1 puff 2 times per day (Last dose: 04/29/2016 08:00) - PMHx: Asthma; - PSHx: left arm ortho surgery; - Social history: Smoking status: Patient states was never smoker of tobacco. Patient uses alcohol occasionally. Patient/guardian denies using street drugs, No barriers to communication noted, The patient speaks fluent British, Speaks appropriately for age. - Family history: Not pertinent. - : The pt / caregiver states he / she is not on anticoagulants. Home medication list is obtained from the patient. - Exposure Risk Screening:: None identified. 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 5 in. (165.10 cm) (R); Pain 5/10; 20:55 BP 133 / 90; Pulse 87; Resp 18; Pulse Ox 95% on R/A; kc3 17:07 Body Mass Index 40.27 (109.77 kg, 165.10 cm) gr2 MDM: 19:10 NS 0.9% 1000 ml IV at bolus once ordered. mo1 19:10 Ondansetron 4 mg IVP once ordered. mo1 19:10 ketorolac 30 mg IVP once ordered. mo1 19:10 IV Saline Lock ordered. mo1 19:10 Undress patient appropriately for examination ordered. mo1 19:11 Basic Metabolic Profile Ordered. EDMS 19:11 CBC with Diff Ordered. EDMS 19:11 Lipase Ordered. EDMS 19:11 Liver Profile Ordered. EDMS 19:11 Urinalysis Ordered. EDMS 19:11 Urine Culture Ordered. EDMS 19:11 NOTHING BY MOUTH+DIET ordered. EDMS 19:21 HCG,Serum Qualitative Ordered. EDMS 19:40 Financial registration complete. gjb 19:47 [facility] Payment Agreement was scanned into [employer] and attached to record. gjb 20:25 Basic Metabolic Profile Reviewed. mo1 20:26 CBC with Diff Reviewed. mo1 20:26 Liver Profile Reviewed. mo1 20:26 Urinalysis Reviewed. mo1 20:27 Lipase Reviewed. mo1 20:27 HCG,Serum Qualitative Reviewed. mo1 20:50 Metoclopramide 5 mg PO once ordered. mo1 20:52 Metoclopramide 10 mg PO once ordered. mo1 04/30 13:23 T-Sheet-- Draft Copy was scanned into [employer] and attached to record. gb Administered Medications: 04/29 19:18 Drug: NS 0.9% 1000 ml [sodium chloride 0.9 % injection solution] Route: IV; Rate: dsf bolus; Site: right antecubital; 19:18 Drug: Ondansetron 4 mg [ondansetron HCl 2 mg/mL intravenous solution (2 mL)] Route: dsf IVP; Site: right antecubital; 19:18 Drug: ketorolac 30 mg [ketorolac 30 mg/mL (1 mL) injection solution (1 mL)] Route: IVP; dsf Site: right antecubital; 20:52 Not Given (Duplicate Order): Metoclopramide 5 mg PO once mo1 20:54 Drug: Metoclopramide 10 mg [metoclopramide 10 mg tablet (1 tabs)] Route: PO; kc3 Signatures: Dispatcher [employer] EDKatie Hernandez, Reg Reg gb Ariana Richter RN RN ttb Benigno Moreno PA PA mo1 Sondra Rodriguez RN RN kc3 Raegan Mcgowan Desiree RN dsf The chart was reviewed and I authenticate all verbal orders and agree with the evaluation and treatment provided.Attachments: 19:47 [facility] Payment Agreement gjb 04/30 13:23 T-Sheet-- Draft Copy gb Chart Complete MTDD
== END 2016-04-29 20:57 | disposition home or self-care (01) ==
LOC: M ED 17:05
DX: A08.4 Viral intestinal infection, unspecified (principal); E86.0 Dehydration; J45.909 Unspecified asthma, uncomplicated
CPT/HCPCS: 80048; 80076; 81001; 83690; 84703; 85025; 87086; 96374; 96375; 99284; J1885; J2405

== ENCOUNTER 2019-08-25 11:54 | Emergency (ER) | payer OTHER, BC ==
[~2019-08-25] VITALS: Ht 165.1 cm; Wt 119.9 kg
[2019-08-25] MEDS ORDERED: CETI10CH PO (12:00)
[2019-08-25] MEDS ORDERED: ADV100INH INH (12:00)
[2019-08-25] MEDS ORDERED: IBUPROFEN 800 MG TAB PO ONE (12:45)
[2019-08-25 12:50] VITALS: BP 140/92
--- NOTE | 2019-08-25 16:03 | REP ---
LEFT KNEE, FIVE VIEWS: There is no evidence of an acute fracture, dislocation, or intrinsic bone disease. IMPRESSION: No fracture or dislocation. Electronically Signed by Rizwan Minor MD 08/28/2019 10:03 P
== END 2019-08-25 14:02 | disposition home or self-care (01) ==
LOC: M ED 11:54
DX: S80.12XA Contusion of left lower leg, initial encounter (principal); W11.XXXA Fall on and from ladder, initial encounter; M25.562 Pain in left knee; Y92.129 Unspecified place in nursing home as the place of occurrence of the external cause; Y93.9 Activity, unspecified; Y99.0 Civilian activity done for income or pay; Z79.899 Other long term (current) drug therapy

== ENCOUNTER → 2020-02-19 | Outpatient (CLI) | payer SELFPAY ==
[~2020-02-19] MED LIST: ADV100INH INH; CETI10CH PO
== END ==
LOC: M LABSMTC 11:35 → EEVIPCON 11:35
PROVIDERS: ATTEND Family Medicine
DX: Z20.828 Contact with and (suspected) exposure to other viral communicable diseases (principal)

== ENCOUNTER → 2020-02-27 | Outpatient (CLI) | payer SELFPAY | LOC: M LABSMTC 16:58 | PROVIDERS: ATTEND Pediatrics | DX: Z11.59 Encounter for screening for other viral diseases (principal) ==

== ENCOUNTER → 2021-01-07 | Outpatient (REF) | LOC: M EMP 08:06 | PROVIDERS: ATTEND Family Medicine | DX: Z20.822 Contact with and (suspected) exposure to COVID-19 (principal) ==

== ENCOUNTER → 2022-05-18 | Outpatient (REF) | LOC: M EMP 09:34 | PROVIDERS: ATTEND Family Medicine | DX: Z11.52 Encounter for screening for COVID-19 (principal) ==

== ENCOUNTER → 2023-03-16 | Outpatient (REF) | LOC: M EMP 07:39 | PROVIDERS: ATTEND Family Medicine | DX: Z11.52 Encounter for screening for COVID-19 (principal) ==

== ENCOUNTER 2023-08-07 23:48 | Inpatient (IN) | payer BC, OTHER ==
[~2023-08-07] VITALS: Ht 167.6 cm; Wt 131.7 kg
[2023-08-08] MEDS ORDERED: FLUT1BLS5 INH
[2023-08-08] MEDS: ONDANSETRON 4MG 2ML VIAL IV ONE (06:33)
[2023-08-08] MEDS: MORPHINE 4 MG/ML 1ML VIAL IV ONE (06:33)
[2023-08-08 06:46] LABS: BASO # 0.1 10^3/uL (0.0-0.2); BASO % 0.2 % (0.0-1.0); EOS # 0.1 10^3/uL (0.0-0.5); EOS % 0.4 % (0.0-3.0); HEMATOCRIT 36.3 % (36.0-47.0); HEMOGLOBIN 11.4 g/dl (12.0-15.5); LYMPH # 1.4 10^3/uL (1.5-5.0); LYMPH % 5.8 % (24.0-44.0); MEAN CORPUSCULAR HEMOGLOBIN 24.3 pg (27.0-33.0); MEAN CORPUSCULAR HGB CONC 31.4 g/dl (32.0-36.5); MEAN CORPUSCULAR VOLUME 77.4 fl (80.0-96.0); MONO # 1.7 10^3/uL (0.0-0.8); MONO % 6.9 % (2.0-8.0); NEUTROPHILS # 21.3 10^3/uL (1.5-8.5); NEUTROPHILS % 85.4 % (36.0-66.0); PLATELET COUNT, AUTOMATED 626 10^3/uL (150-450); RED BLOOD COUNT 4.69 10^6/uL (4.00-5.40); WHITE BLOOD COUNT 24.9 10^3/uL (4.0-10.0)
[2023-08-08 07:36] LABS: ERYTHROCYTE SEDIMENTATION RATE 82 mm/hr (0-20)
[2023-08-08 08:00] LABS: BLOOD UREA NITROGEN 24 MG/DL (9-23); CALCIUM LEVEL 8.1 MG/DL (8.5-10.1); CARBON DIOXIDE LEVEL 24 MMOL/L (20-31); CHLORIDE LEVEL 103 MMOL/L (98-107); CREATININE FOR GFR 0.96 MG/DL (0.55-1.30); GLOMERULAR FILTRATION RATE > 60.0 (>58); GLUCOSE, FASTING 223 MG/DL (60-100); POTASSIUM SERUM 4.6 MMOL/L (3.5-5.1); RHEUMATOID FACTOR QUANT 25.8 IU/ML (<14); SODIUM LEVEL 135 MMOL/L (136-145)
[2023-08-08] MEDS: ACETAMINOPHEN TAB 650MG DOSE (2X325MG) PO ONE (08:56)
[2023-08-08] MEDS: NS 1,000 ML IV ONE (08:56)
[2023-08-08] MEDS ORDERED: VANCOMYCIN HCL 2,000 MG in D5W 500 ML IV ONE (09:25)
[2023-08-08] MEDS ORDERED: VANCOMYCIN HCL 1,000 MG, VIAL MATE ADAPTER 1 EACH in D5W 250 ML IV ONE (09:35)
[2023-08-08] MEDS ORDERED: CETI-24 PO (09:39)
[2023-08-08] MEDS ORDERED: VENTAER INH (09:41)
[2023-08-08] MEDS ORDERED: ALBU2.5V10 INH (09:41)
[2023-08-08] MEDS ORDERED: HOME MED LIST COMPLETE! XX SCH (09:45)
[2023-08-08] MEDS: VANCOMYCIN HCL 1,000 MG, VIAL MATE ADAPTER 1 EACH in D5W 250 ML IV ONE ×2 (09:49→16:30)
[2023-08-08] MEDS: ALBUTEROL 90 MCG/ACT 8GM HFA INHALER INH ONE (10:10)
[2023-08-08 10:14] LABS: HEMOGLOBIN A1c 7.8 % (4.0-6.0)
[2023-08-08 11:59] VITALS: BP 164/94; TEMP 98.6; O2SAT 99
[2023-08-08] MEDS: METOPROLOL TART 25 MG TABLET PO SCH (12:00)
[2023-08-08] MEDS: FAMOTIDINE 40MG/5ML ORAL SUSPENSON 50ML BOTTLE PO SCH (12:05)
[2023-08-08] MEDS ORDERED: GLUCOSE 4 GM CHEW PO PRN (12:30)
[2023-08-08] MEDS ORDERED: DEXTROSE 50% 50ML SYRINGE IV PRN (12:30)
[2023-08-08] MEDS ORDERED: GLUCAGON INJ 1MG VIAL SC PRN (12:30)
[2023-08-08 12:57] LABS: URIC ACID 5.8 MG/DL (3.1-7.8)
[2023-08-08] MEDS: predniSONE 20 MG TAB PO SCH (13:47)
[2023-08-08] MEDS: LEVEMIR (INSULIN DETEMIR) 1 UNITS/0.01ML SC ONE (13:48)
[2023-08-08] MEDS: TRIAMCINOLONE ACET 0.1% OINTMENT 15GM TOP SCH (13:48)
[2023-08-08 14:00] VITALS: BP 148/79; TEMP 99.3; O2SAT 96
[2023-08-08] MEDS ORDERED: KETOROLAC 30 MG/ML 1ML VIAL IV PRN (15:05)
[2023-08-08] MEDS ORDERED: VANCOMYCIN HCL 750 MG, VIAL MATE ADAPTER 1 EACH in D5W 250 ML IV SCH (15:05)
[2023-08-08] MEDS: cefTRIAXone SOD 1 GM in D5W MINI-BAG PLUS 50 ML IV SCH (15:37)
[2023-08-08 17:22] VITALS: BP 145/80
[2023-08-08] MEDS: INSULIN LISPRO (NovoLOG) PER UNIT SC SCH ×2 (17:28→20:25)
[2023-08-08] MEDS: VANCOMYCIN HCL 750 MG, VIAL MATE ADAPTER 1 EACH in D5W 250 ML IV SCH (18:17)
[2023-08-08 19:30] VITALS: BP 108/67; TEMP 98.1; O2SAT 95
[2023-08-08] MEDS: NS 1,000 ML IV SCH (19:57)
[2023-08-08] MEDS: ENOXAPARIN 40MG/0.4ML SYRINGE (J1650 PER 10MG) SC SCH (20:25)
[2023-08-08] MEDS: CALCIPOTRIENE CREAM 0.005% 60GM TOP SCH (20:26)
[2023-08-08] MEDS: VANICREAM MOISTURIZING SKIN CREAM 113GM TUBE TOP SCH (20:26)
[2023-08-08] MEDS: FAMOTIDINE 20 MG TAB PO SCH (20:34)
[2023-08-09 05:07] VITALS: BP 126/76; TEMP 98.1; O2SAT 98
[2023-08-09 06:09] LABS: APPEARANCE, URINE HAZY (CLEAR); BACTERIA, URINE AUTO 1+ (NEGATIVE); BILIRUBIN, URINE AUTO NEGATIVE (NEGATIVE); BLOOD, URINE BLOOD 2+ (NEGATIVE); COLOR, URINE YELLOW (YELLOW); GLUCOSE, URINE (UA) AUTO NEGATIVE (NEGATIVE); KETONE, URINE AUTO NEGATIVE (NEGATIVE); LEUKOCYTE ESTERASE, URINE AUTO NEGATIVE (NEGATIVE); MUCUS, URINE SMALL (NEGATIVE); NITRITE, URINE AUTO NEGATIVE (NEGATIVE); PROTEIN, URINE AUTO NEGATIVE (NEGATIVE); RBC, URINE AUTO 2 /HPF (0-3); SQUAMOUS EPITHELIAL CELL UR AU 2 /HPF (0-6); UROBILINOGEN, URINE AUTO 0.2 mg/dL (0.0-2.0); WBC, URINE AUTO 3 /HPF (0-3)
[2023-08-09 06:15] LABS: BASO % 0.1 % (0.0-1.0); EOS % 0.2 % (0.0-3.0); HEMATOCRIT 32.6 % (36.0-47.0); HEMOGLOBIN 10.2 g/dl (12.0-15.5); LYMPH # 1.2 10^3/uL (1.5-5.0); LYMPH % 6.3 % (24.0-44.0); MEAN CORPUSCULAR HEMOGLOBIN 24.9 pg (27.0-33.0); MEAN CORPUSCULAR HGB CONC 31.3 g/dl (32.0-36.5); MEAN CORPUSCULAR VOLUME 79.5 fl (80.0-96.0); MONO # 1.2 10^3/uL (0.0-0.8); MONO % 6.1 % (2.0-8.0); NEUTROPHILS # 16.5 10^3/uL (1.5-8.5); NEUTROPHILS % 86.3 % (36.0-66.0); WHITE BLOOD COUNT 19.2 10^3/uL (4.0-10.0)
[2023-08-09 06:23] LABS: PLATELET COUNT, AUTOMATED 445 10^3/uL (150-450)
[2023-08-09] MEDS ORDERED: traMADol 50 MG TAB PO PRN (08:00)
[2023-08-09 08:42] LABS: BLOOD UREA NITROGEN 16 MG/DL (9-23); CALCIUM LEVEL 7.3 MG/DL (8.5-10.1); CARBON DIOXIDE LEVEL 23 MMOL/L (20-31); CHLORIDE LEVEL 104 MMOL/L (98-107); CREATININE FOR GFR 0.88 MG/DL (0.55-1.30); GLOMERULAR FILTRATION RATE > 60.0 (>58); GLUCOSE, FASTING 188 MG/DL (60-100); POTASSIUM SERUM 4.2 MMOL/L (3.5-5.1); SODIUM LEVEL 133 MMOL/L (136-145)
[2023-08-09 09:37] LABS: VANCOMYCIN LEVEL TROUGH 12.2 UG/ML (10.0-20.0)
[2023-08-09] MEDS: ACETAMINOPHEN 500 MG TAB PO ONE (10:04)
[2023-08-09] MEDS: traMADol 50 MG TAB PO ONE (10:05)
[2023-08-09] MEDS: KETOROLAC 30 MG/ML 1ML VIAL IV ONE (10:06)
[2023-08-09] MEDS: ASPIRIN 81MG ENTERIC TABLET PO SCH (10:06)
[2023-08-09] MEDS: LEVEMIR (INSULIN DETEMIR) 1 UNITS/0.01ML SC SCH (10:10)
[2023-08-09 14:01] LABS: C REACTIVE PROTEIN QUANTITATIV 22.8 MG/DL (<1.0)
[2023-08-09] MEDS: ACETAMINOPHEN TAB 650MG DOSE (2X325MG) PO PRN (17:43)
[2023-08-09 19:30] VITALS: BP 137/77; TEMP 96.8; O2SAT 96
[2023-08-10 05:24] VITALS: BP 140/81; TEMP 97.2; O2SAT 99
[2023-08-10 07:45] LABS: BASO % 0.1 % (0.0-1.0); EOS # 0.1 10^3/uL (0.0-0.5); EOS % 0.5 % (0.0-3.0); HEMATOCRIT 33.1 % (36.0-47.0); HEMOGLOBIN 10.2 g/dl (12.0-15.5); LYMPH # 1.2 10^3/uL (1.5-5.0); MEAN CORPUSCULAR HEMOGLOBIN 24.3 pg (27.0-33.0); MEAN CORPUSCULAR HGB CONC 30.8 g/dl (32.0-36.5); MEAN CORPUSCULAR VOLUME 78.8 fl (80.0-96.0); MONO # 0.9 10^3/uL (0.0-0.8); NEUTROPHILS # 8.9 10^3/uL (1.5-8.5); NEUTROPHILS % 79.5 % (36.0-66.0); PLATELET COUNT, AUTOMATED 366 10^3/uL (150-450); WHITE BLOOD COUNT 11.1 10^3/uL (4.0-10.0)
[2023-08-10 08:05] LABS: BLOOD UREA NITROGEN 17 MG/DL (9-23); CALCIUM LEVEL 7.5 MG/DL (8.5-10.1); CARBON DIOXIDE LEVEL 24 MMOL/L (20-31); CHLORIDE LEVEL 105 MMOL/L (98-107); CREATININE FOR GFR 0.91 MG/DL (0.55-1.30); GLOMERULAR FILTRATION RATE > 60.0 (>58); GLUCOSE, FASTING 120 MG/DL (60-100); POTASSIUM SERUM 4.2 MMOL/L (3.5-5.1); SODIUM LEVEL 136 MMOL/L (136-145)
[2023-08-10] MEDS: VANCOMYCIN HCL 1,000 MG, VIAL MATE ADAPTER 1 EACH in D5W 250 ML IV SCH (10:38)
[2023-08-10 12:20] VITALS: BP 145/87
[2023-08-10] MEDS ORDERED: TRIA1OI TOP (16:02)
[2023-08-10] MEDS ORDERED: LISI10TA22 PO (16:02)
[2023-08-10] MEDS ORDERED: DOXY-440 PO (16:02)
[2023-08-10] MEDS ORDERED: CALC0.0017 TOP (16:02)
[2023-08-10] MEDS ORDERED: CEFD300CAP PO (16:02)
[2023-08-10] MEDS ORDERED: METF-839 PO (16:02)
[2023-08-10] MEDS ORDERED: PRED20TA PO (16:02)
[2023-08-10] MEDS ORDERED: FAMO20TA PO (16:02)
[2023-08-10] MEDS ORDERED: METO1TAB87 PO (16:02)
[2023-08-10] MEDS ORDERED: VANI1CRE5 TOP (16:08)
[2023-08-10] MEDS ORDERED: HYDR-3363 PO (16:08)
[2023-08-11 08:13] LABS: ANTINUCLEAR ANTIBODIES DIRECT Negative (Negative)
[2023-08-11 13:09] LABS: ANTI DS-DNA AB Negative (Negative)
== END 2023-08-10 16:45 | disposition home or self-care (01) | DRG 351 ==
LOC: M ED 23:48 → EEVIPCON 08-08 09:53 → M ED INP 08-08 09:53 → M MS5PR 08-08 11:44
PROVIDERS: ADMIT General Practice; ATTEND Internal Medicine Nephrology
PROC: 0S9C3ZZ Drainage of Right Knee Joint, Percutaneous Approach (ICD-10-PCS; principal; 2023-08-08)
DX: M76.51 Patellar tendinitis, right knee (principal); Z68.42 Body mass index [BMI] 45.0-49.9, adult; I10 Essential (primary) hypertension; E66.01 Morbid (severe) obesity due to excess calories; J45.909 Unspecified asthma, uncomplicated; L40.8 Other psoriasis; G47.33 Obstructive sleep apnea (adult) (pediatric); Z79.899 Other long term (current) drug therapy

== ENCOUNTER 2023-08-19 15:34 | Emergency (ER) | payer BC ==
[~2023-08-19] VITALS: Ht 167.6 cm; Wt 122.7 kg
[~2023-08-19 15:34] MED LIST changes: +ALBU2.5V10 INH; +CALC0.0017 TOP; +CEFD300CAP PO; +CETI-24 PO; +DOXY-440 PO; +FAMO20TA PO; +FLUT1BLS5 INH; +HYDR-3363 PO; +LISI10TA22 PO; +METF-839 PO; +METO1TAB87 PO; +PRED20TA PO; +TRIA1OI TOP; +VANI1CRE5 TOP; +VENTAER INH
[2023-08-19] MEDS: NS 500 ML IV ONE (16:10)
[2023-08-19 16:13] VITALS: BP 146/85
[2023-08-19] MEDS: METOPROLOL TART 25 MG TABLET PO ONE (16:13)
[2023-08-19 16:47] LABS: BASO % 0.3 % (0.0-1.0); EOS # 0.1 10^3/uL (0.0-0.5); EOS % 0.8 % (0.0-3.0); HEMATOCRIT 42.8 % (36.0-47.0); HEMOGLOBIN 13.1 g/dl (12.0-15.5); LYMPH # 1.9 10^3/uL (1.5-5.0); MEAN CORPUSCULAR HEMOGLOBIN 24.2 pg (27.0-33.0); MEAN CORPUSCULAR HGB CONC 30.6 g/dl (32.0-36.5); MONO # 1.1 10^3/uL (0.0-0.8); MONO % 7.6 % (2.0-8.0); NEUTROPHILS # 11.2 10^3/uL (1.5-8.5); NEUTROPHILS % 77.9 % (36.0-66.0); PLATELET COUNT, AUTOMATED 552 10^3/uL (150-450); RED BLOOD COUNT 5.42 10^6/uL (4.00-5.40); WHITE BLOOD COUNT 14.4 10^3/uL (4.0-10.0)
[2023-08-19 17:21] LABS: BLOOD UREA NITROGEN 19 MG/DL (9-23); CALCIUM LEVEL 9.8 MG/DL (8.5-10.1); CARBON DIOXIDE LEVEL 21 MMOL/L (20-31); CHLORIDE LEVEL 105 MMOL/L (98-107); CREATININE FOR GFR 1.13 MG/DL (0.55-1.30); GLOMERULAR FILTRATION RATE 56.5 (>58); GLUCOSE, FASTING 109 MG/DL (60-100); MAGNESIUM LEVEL 1.9 MG/DL (1.8-2.4); POTASSIUM SERUM 4.5 MMOL/L (3.5-5.1); SODIUM LEVEL 138 MMOL/L (136-145); THYROID STIMULATING HORMONE 1.228 uIU/ML (0.55-4.78)
[2023-08-19 17:41] LABS: ERYTHROCYTE SEDIMENTATION RATE 110 mm/hr (0-20)
[2023-08-19 17:59] LABS: HCG, SERUM QUALITATIVE NEGATIVE (NEGATIVE)
[2023-08-19] MEDS: NS 1,000 ML IV ONE (18:24)
[2023-08-19 19:15] VITALS: BP 137/78; TEMP 97.5; O2SAT 96
== END 2023-08-19 19:29 | disposition home or self-care (01) ==
LOC: M ED 15:34 → EDBD 15:34 → M ED 19:29
DX: I10 Essential (primary) hypertension (principal); R00.0 Tachycardia, unspecified; E11.9 Type 2 diabetes mellitus without complications; J45.909 Unspecified asthma, uncomplicated; G47.33 Obstructive sleep apnea (adult) (pediatric); E66.9 Obesity, unspecified; Z79.52 Long term (current) use of systemic steroids; Z79.4 Long term (current) use of insulin; Z79.811 Long term (current) use of aromatase inhibitors; Z79.899 Other long term (current) drug therapy

== ENCOUNTER → 2023-08-27 | Outpatient (REF) | payer BC ==
[2023-08-27 18:22] LABS: CREATININE, URINE 14.1 MG/DL
[2023-08-27 18:23] LABS: MALB URINE SIEMENS < 3.0 MG/L; MAU/CREAT RATIO 21.2 MCG/MG (0.0-30.0)
[2023-08-27 19:42] LABS: HCG, SERUM QUALITATIVE NEGATIVE (NEGATIVE)
== END ==
LOC: M LAB REF 16:25
PROVIDERS: ATTEND Nurse Practitioner Family
DX: E11.8 Type 2 diabetes mellitus with unspecified complications (principal); E88.819 Insulin resistance, unspecified

== ENCOUNTER → 2023-09-21 | Outpatient (CLI) | payer BC | LOC: M SLEEP HO 10:55 | PROVIDERS: ATTEND Nurse Practitioner Family | DX: R53.83 Other fatigue (principal) ==

== ENCOUNTER 2023-10-25 07:34 | Emergency (ER) | payer BC ==
[~2023-10-25] VITALS: Ht 167.6 cm; Wt 119.6 kg
[2023-10-25] MEDS: KETOROLAC 60MG 2ML VIAL IM ONE (11:57)
[2023-10-25 12:16] VITALS: BP 176/88; TEMP 97.4; O2SAT 94
== END 2023-10-25 12:17 | disposition home or self-care (01) ==
LOC: M ED 07:34
DX: S80.02XA Contusion of left knee, initial encounter (principal); M54.50 Low back pain, unspecified; W19.XXXA Unspecified fall, initial encounter; E11.9 Type 2 diabetes mellitus without complications; I10 Essential (primary) hypertension; Y92.233 Cafeteria of hospital as the place of occurrence of the external cause; Y93.89 Activity, other specified; Y99.0 Civilian activity done for income or pay; Z79.52 Long term (current) use of systemic steroids; Z79.811 Long term (current) use of aromatase inhibitors; Z79.4 Long term (current) use of insulin; Z79.899 Other long term (current) drug therapy
CPT/HCPCS: 72131; 73564; 96372; 99283; J1885

== ENCOUNTER → 2023-11-25 | Outpatient (REF) | payer BC ==
[2023-11-25 17:47] LABS: HEMOGLOBIN A1c 5.4 % (4.0-6.0)
[2023-11-25 18:05] LABS: BLOOD UREA NITROGEN 16 MG/DL (9-23); CALCIUM LEVEL 8.7 MG/DL (8.5-10.1); CARBON DIOXIDE LEVEL 24 MMOL/L (20-31); CHLORIDE LEVEL 108 MMOL/L (98-107); CREATININE FOR GFR 0.68 MG/DL (0.55-1.30); GLOMERULAR FILTRATION RATE > 60.0 (>58); GLUCOSE, FASTING 91 MG/DL (60-100); POTASSIUM SERUM 4.2 MMOL/L (3.5-5.1); SODIUM LEVEL 138 MMOL/L (136-145)
== END ==
LOC: M LAB REF 16:28
PROVIDERS: ATTEND Nurse Practitioner Family
DX: E11.8 Type 2 diabetes mellitus with unspecified complications (principal)

== ENCOUNTER → 2024-03-16 | Outpatient (CLI) | payer BC ==
[~2024-03-16] MED LIST changes: -ADV100INH INH; +ADVA1AER8 INH
== END ==
LOC: M WUC 13:23
PROVIDERS: ATTEND Internal Medicine
DX: R70.0 Elevated erythrocyte sedimentation rate (principal); R79.82 Elevated C-reactive protein (CRP); Z84.0 Family history of diseases of the skin and subcutaneous tissue

== ENCOUNTER → 2024-03-20 | Outpatient (CLI) | payer BC | LOC: M WHC 15:44 | PROVIDERS: ATTEND Nurse Practitioner Family | DX: Z12.31 Encounter for screening mammogram for malignant neoplasm of breast (principal) ==

== ENCOUNTER 2024-04-11 13:21 | Emergency (ER) | payer OTHER, BC ==
[~2024-04-11] VITALS: Ht 167.6 cm; Wt 120.3 kg
[2024-04-11 13:26] VITALS: TEMP 99.7
[2024-04-11] MEDS: KETOROLAC 60MG 2ML VIAL IM ONE (18:16)
[2024-04-11] MEDS ORDERED: METH-1165 PO (18:51)
[2024-04-11] MEDS ORDERED: MELO15TA28 PO (18:51)
[2024-04-11 18:55] VITALS: BP 137/84; O2SAT 99
== END 2024-04-11 18:57 | disposition home or self-care (01) ==
LOC: M ED 13:21
DX: S30.0XXA Contusion of lower back and pelvis, initial encounter (principal); W00.0XXA Fall on same level due to ice and snow, initial encounter; M50.322 Other cervical disc degeneration at C5-C6 level; M50.323 Other cervical disc degeneration at C6-C7 level; M25.78 Osteophyte, vertebrae; M47.896 Other spondylosis, lumbar region; K44.9 Diaphragmatic hernia without obstruction or gangrene; J45.909 Unspecified asthma, uncomplicated; K21.9 Gastro-esophageal reflux disease without esophagitis; I10 Essential (primary) hypertension; E11.9 Type 2 diabetes mellitus without complications; Z79.52 Long term (current) use of systemic steroids; Z79.4 Long term (current) use of insulin; Z79.899 Other long term (current) drug therapy; Y92.9 Unspecified place or not applicable; Y93.89 Activity, other specified; Y99.9 Unspecified external cause status
CPT/HCPCS: 72125; 72128; 72131; 96372; 99283; J1885

== ENCOUNTER → 2024-04-27 | Outpatient (CLI) | payer BC ==
[~2024-04-27] MED LIST changes: +MELO15TA28 PO; +METH-1165 PO
== END ==
LOC: M WHC 09:40
PROVIDERS: ATTEND Nurse Practitioner Family
DX: R92.2 Inconclusive mammogram (principal)
CPT/HCPCS: 77065; G0279

== ENCOUNTER → 2024-05-29 | Outpatient (CLI) | payer BC | LOC: M WUC 13:41 | PROVIDERS: ATTEND Internal Medicine | DX: M25.50 Pain in unspecified joint (principal) ==

== ENCOUNTER → 2024-06-22 | Outpatient (CLI) | payer BC | LOC: M PLAIMG 09:32 | PROVIDERS: ATTEND Internal Medicine | DX: M54.9 Dorsalgia, unspecified (principal); M46.1 Sacroiliitis, not elsewhere classified ==

== ENCOUNTER → 2024-12-21 | Outpatient (REF) | payer BC ==
[2024-12-21 18:07] LABS: CREATININE, URINE 33.7 MG/DL; MALB URINE SIEMENS 10.0 MG/L; MAU/CREAT RATIO 29.6 MCG/MG (0.0-30.0)
== END ==
LOC: M LAB REF 16:48
PROVIDERS: ATTEND Nurse Practitioner Family
DX: E11.8 Type 2 diabetes mellitus with unspecified complications (principal)

== ENCOUNTER → 2024-12-21 | Outpatient (REF) | payer BC ==
[2024-12-21 19:25] LABS: BASO # 0.0 10^3/uL (0.0-0.2); BASO % 0.4 % (0.0-1.0); EOS # 0.2 10^3/uL (0.0-0.5); EOS % 1.9 % (0.0-3.0); LYMPH # 2.4 10^3/uL (1.5-5.0); LYMPH % 23.6 % (24.0-44.0); MONO # 0.7 10^3/uL (0.0-0.8); MONO % 6.9 % (2.0-8.0); NEUTROPHILS # 6.7 10^3/uL (1.5-8.5); NEUTROPHILS % 66.9 % (36.0-66.0); PLATELET COUNT, AUTOMATED 424 10^3/uL (150-450)
[2024-12-21 19:29] LABS: ALT/SGPT 24.0 U/L (7.0-40); AST/SGOT 16.0 U/L (<34); CHOLESTEROL LEVEL 154.0 MG/DL (<200); CHOLESTEROL RISK RATIO 4.13 (<5); LDL CHOLESTEROL 88.8 MG/DL (<100); NON-HDL-C 116.8 MG/DL; TRIGLYCERIDES LEVEL 140.0 MG/DL (<150)
== END ==
LOC: M LAB REF 13:30
PROVIDERS: ATTEND Nurse Practitioner Family
DX: E11.8 Type 2 diabetes mellitus with unspecified complications (principal)

== ENCOUNTER 2025-03-13 16:40 | Emergency (ER) | payer BC ==
[~2025-03-13] VITALS: Ht 165.1 cm; Wt 120.0 kg
[2025-03-14] MEDS: TETANUS/DIPHTH/ACEL. PERTUSSIS 0.5 ML SYR IM.IMMUN ONE (02:51)
[2025-03-14] MEDS: ACETAMINOPHEN 500 MG TAB PO ONE (02:52)
[2025-03-14] MEDS: KETOROLAC 60 MG/2 ML VIAL IM ONE (02:53)
[2025-03-14 03:20] VITALS: BP 141/81; TEMP 97.3; O2SAT 98
== END 2025-03-14 03:25 | disposition home or self-care (01) ==
LOC: M ED 16:40
DX: S83.91XA Sprain of unspecified site of right knee, initial encounter (principal); S80.211A Abrasion, right knee, initial encounter; M25.461 Effusion, right knee; W01.0XXA Fall on same level from slipping, tripping and stumbling without subsequent striking against object, initial encounter; I10 Essential (primary) hypertension; E11.9 Type 2 diabetes mellitus without complications; J45.909 Unspecified asthma, uncomplicated; K21.9 Gastro-esophageal reflux disease without esophagitis; Z79.52 Long term (current) use of systemic steroids; Z79.899 Other long term (current) drug therapy; Z79.4 Long term (current) use of insulin; Z23 Encounter for immunization; Y92.89 Other specified places as the place of occurrence of the external cause; Y93.89 Activity, other specified; Y99.8 Other external cause status
CPT/HCPCS: 73560; 73700; 90471; 90715; 96372; 99284; J1885